=== PATIENT | male | born 1990 | race Two or more races ===

== ENCOUNTER 2019-12-22 21:38 | Emergency (ER) | payer MEDICAID, OTHER ==
[~2019-12-22] VITALS: Ht 162.6 cm; Wt 70.8 kg
[2019-12-22 22:00] VITALS: BP 136/86
[2019-12-22 22:32] LABS: Albumin 4.5 g/dL (3.4-5.0); BUN/Creatinine Ratio 4.8; Calcium 8.9 mg/dL (8.5-10.1); Potassium 3.2 mmol/L (3.5-5.1)
[2019-12-22 22:34] LABS: Basophils # (auto) 0.1 10 ^3/uL (0-0.2); Eosinophils # (auto) 0.1 10 ^3/uL (0-0.8); Hemoglobin 17.7 g/dL (13.5-17.5); Mean Corpuscular Hemoglobin 32.6 pg (28.0-32.0); Monocytes # (auto) 0.6 10 ^3/uL (0-1.3); Platelet Count (auto) 186 10^3/uL (140-450); Red Blood Cells 5.43 10^6/uL (4.5-5.90); Salicylate < 1.7 mg/dL (2.8-20.0)
[2019-12-22 22:36] LABS: Acetaminophen < 2.0 ug/mL (10-30); Eosinophils % (auto) 0.9 % (0.0-7.0); Hematocrit 50.3 % (41.0-53.0); Lymphocytes # (auto) 2.1 10 ^3/uL (0.4-5.4); Lymphocytes % (auto) 26.1 % (10.0-50.0); Mean Corpuscular Hgb Conc. 35.2 g/dL (32.0-36.0); Mean Corpuscular Volume 92.7 fL (80.0-100.0); Monocytes % (auto) 7.6 % (0.0-12.0); Neutrophils # (auto) 5.1 10 ^3/uL (1.6-8.6); Neutrophils % (auto) 64.4 % (37.0-80.0); Nucleated Red Blood Cells % 0.3 %; Red Cell Distribution Width 12.7 % (11.8-14.3)
[2019-12-22 22:37] LABS: Bilirubin, Total 1.3 mg/dL (0.2-1.0); Total Protein 8.8 g/dL (6.4-8.2)
[2019-12-22] MEDS ORDERED: SODIUM CHLORIDE 0.9% 2,000 ML IV ONE (23:00)
[2019-12-22] MEDS ORDERED: THIAMINE 100mg/ml INJ (200mg/2ml VIAL) IV ONE (23:00)
[2019-12-22 23:46] LABS: Amphetamine Screen, Urine NEGATIVE (NEGATIVE); Barbiturate Scree,Urine NEGATIVE (NEGATIVE); Benzodiazephine Screen, Urine NEGATIVE (NEGATIVE); Cannabinoid Screen, Urine NEGATIVE (NEGATIVE); Cocaine Screen, Urine NEGATIVE (NEGATIVE); Opiate Scree,Urine NEGATIVE (NEGATIVE); Phencyclidine Screen, Urine NEGATIVE (NEGATIVE)
== END 2019-12-22 23:53 | disposition home or self-care (01) ==
LOC: ER 21:40
DX: K70.30 Alcoholic cirrhosis of liver without ascites (principal); I85.10 Secondary esophageal varices without bleeding; F10.229 Alcohol dependence with intoxication, unspecified; Y90.9 Presence of alcohol in blood, level not specified
CPT/HCPCS: 36415; 80053; 80307; 80320; 80329; 85025; 99283; J7030